=== PATIENT | female | born 1930 | race Two or more races ===

== ENCOUNTER 2021-03-16 08:29 | Inpatient (IN) | payer OTHER, MEDICAID ==
[~2021-03-16] VITALS: Ht 142.2 cm; Wt 62.7 kg
[~2021-03-16 08:29] MED LIST: BABY ASA PO; CLOP75TA28; DILTIAZEM PO; DIOVAN PO; HCTZ; LOVAPOW; POTASSIUM
[2021-03-16 09:15] LABS: Basophils # (auto) 0.1 10 ^3/uL (0-0.2); Eosinophils # (auto) 0.3 10 ^3/uL (0-0.8); Eosinophils % (auto) 4.4 % (0.0-7.0); Hematocrit 39.2 % (36.0-46.0); Hemoglobin 13.6 g/dL (12.2-16.2); Lymphocytes # (auto) 1.8 10 ^3/uL (0.4-5.4); Lymphocytes % (auto) 26.8 % (10.0-50.0); Mean Corpuscular Hemoglobin 31.5 pg (28.0-32.0); Mean Corpuscular Hgb Conc. 34.6 g/dL (32.0-36.0); Mean Corpuscular Volume 91.2 fL (80.0-100.0); Monocytes # (auto) 0.7 10 ^3/uL (0-1.3); Monocytes % (auto) 10.5 % (0.0-12.0); Neutrophils # (auto) 3.9 10 ^3/uL (1.6-8.6); Neutrophils % (auto) 57.3 % (37.0-80.0); Nucleated Red Blood Cells % 0.1 %; Platelet Count (auto) 257 10^3/uL (140-450); Red Cell Distribution Width 12.6 % (11.8-14.3); White Blood Cell 6.8 10^3/uL (4.4-10.8)
[2021-03-16 09:30] LABS: INR 0.98 (0.9-1.15); Partial Thromboplastin Time 24.9 sec (23.0-31.2)
[2021-03-16 09:43] LABS: Albumin 3.4 g/dL (3.4-5.0); Calcium 8.8 mg/dL (8.5-10.1); Potassium 3.9 mmol/L (3.5-5.1)
[2021-03-16 09:48] LABS: Bilirubin, Total 0.4 mg/dL (0.2-1.0); Total Protein 7.5 g/dL (6.4-8.2)
[2021-03-16] MEDS ORDERED: MORPHINE SULF INJ 2 MG/ML SYRINGE 1ML IV PRN ×2 (15:45)
[2021-03-16] MEDS ORDERED: NITROGLYCERIN 0.4 MG SL TAB SL PRN (15:45)
[2021-03-16] MEDS ORDERED: LORazepam 0.5 MG TAB PO PRN (15:45)
[2021-03-16] MEDS ORDERED: DOCUSATE CALCIUM 240 MG CAP PO PRN (15:45)
[2021-03-16] MEDS ORDERED: hydrALAZINE HCL 20 MG/ML VL IV PRN (15:45)
[2021-03-16] MEDS ORDERED: ACETAMINOPHEN 500 MG TAB PO PRN (15:45)
[2021-03-16] MEDS ORDERED: ONDANSETRON HCL 4 MG/2 ML VIAL IV PRN (15:45)
[2021-03-16 19:53] LABS: Cholesterol 156 mg/dL (< 200)
[2021-03-16 19:56] LABS: HDL Cholesterol 49 mg/dL (40-59); LDL Cholesterol 84 mg/dL (< 100); Triglycerides 123 mg/dL (< 150)
[2021-03-16 20:04] VITALS: BP 155/78
[2021-03-16 20:31] LABS: Urine WBC None Seen /hpf (0 - 5)
[2021-03-16 20:55] LABS: Urine Bacteria FEW /hpf (None Seen); Urine Blood Negative /uL (Negative); Urine Specific Gravity 1.006 (1.001-1.035)
[2021-03-16] MEDS: ATORVASTATIN 20 MG TAB PO SCH (21:37)
[2021-03-17 04:55] VITALS: BP 148/53
[2021-03-17] MEDS ORDERED: LOSA-39 PO (07:37)
[2021-03-17] MEDS ORDERED: CLOP75TA70 PO (07:37)
[2021-03-17] MEDS ORDERED: CHOL200031 PO (07:37)
[2021-03-17] MEDS ORDERED: AMLO-489 PO (07:37)
[2021-03-17] MEDS ORDERED: TRIATAB3 PO (07:37)
[2021-03-17] MEDS ORDERED: SIMV10TA84 PO (07:37)
[2021-03-17 07:49] LABS: Basophils # (auto) 0.1 10 ^3/uL (0-0.2); Basophils % (auto) 0.9 % (0.0-2.0); Eosinophils # (auto) 0.3 10 ^3/uL (0-0.8); Eosinophils % (auto) 3.6 % (0.0-7.0); Hematocrit 38.9 % (36.0-46.0); Hemoglobin 13.2 g/dL (12.2-16.2); Lymphocytes # (auto) 1.7 10 ^3/uL (0.4-5.4); Lymphocytes % (auto) 24.9 % (10.0-50.0); Mean Corpuscular Volume 91.4 fL (80.0-100.0); Monocytes # (auto) 0.8 10 ^3/uL (0-1.3); Monocytes % (auto) 10.9 % (0.0-12.0); Neutrophils # (auto) 4.1 10 ^3/uL (1.6-8.6); Neutrophils % (auto) 59.7 % (37.0-80.0); Platelet Count (auto) 258 10^3/uL (140-450); Red Blood Cells 4.25 10^6/uL (4.0-5.20); Red Cell Distribution Width 12.4 % (11.8-14.3); White Blood Cell 6.9 10^3/uL (4.4-10.8)
[2021-03-17 08:00] VITALS: BP 130/70
[2021-03-17 08:01] LABS: Calcium 8.5 mg/dL (8.5-10.1); Potassium 3.9 mmol/L (3.5-5.1)
[2021-03-17 08:05] LABS: BUN/Creatinine Ratio 25.3; Bilirubin, Total 0.6 mg/dL (0.2-1.0); Total Protein 6.7 g/dL (6.4-8.2)
[2021-03-17] MEDS: ASPirin 81 mg TAB PO SCH (09:13)
[2021-03-17] MEDS: PANTOPRAZOLE 40 MG TAB PO SCH (09:13)
[2021-03-17] MEDS ORDERED: ENOXAPARIN SOD 30 MG/0.3 ML SYRINGE SC SCH (10:00)
[2021-03-17 12:00] VITALS: BP 163/73
[2021-03-17] MEDS: CLOPIDOGREL BISULFATE 75 MG TAB PO SCH (13:00)
[2021-03-17 16:00] VITALS: BP 158/73
[2021-03-17] MEDS: LISINOPRIL 5 MG TAB PO SCH (16:21)
[2021-03-17] MEDS: ATORVASTATIN 20 MG TAB PO SCH (21:21)
[2021-03-17 22:00] VITALS: BP 135/69
[2021-03-18 05:00] VITALS: BP 114/54
[2021-03-18 06:55] LABS: Basophils # (auto) 0.1 10 ^3/uL (0-0.2); Basophils % (auto) 0.8 % (0.0-2.0); Eosinophils # (auto) 0.2 10 ^3/uL (0-0.8); Eosinophils % (auto) 2.9 % (0.0-7.0); Hematocrit 38.4 % (36.0-46.0); Hemoglobin 13.2 g/dL (12.2-16.2); Lymphocytes # (auto) 1.4 10 ^3/uL (0.4-5.4); Lymphocytes % (auto) 19.6 % (10.0-50.0); Mean Corpuscular Hemoglobin 31.3 pg (28.0-32.0); Mean Corpuscular Hgb Conc. 34.3 g/dL (32.0-36.0); Mean Corpuscular Volume 91.3 fL (80.0-100.0); Monocytes # (auto) 0.7 10 ^3/uL (0-1.3); Monocytes % (auto) 10.6 % (0.0-12.0); Neutrophils # (auto) 4.6 10 ^3/uL (1.6-8.6); Neutrophils % (auto) 66.1 % (37.0-80.0); Nucleated Red Blood Cells % 0.1 %; Platelet Count (auto) 260 10^3/uL (140-450); Red Blood Cells 4.21 10^6/uL (4.0-5.20); Red Cell Distribution Width 12.5 % (11.8-14.3); White Blood Cell 6.9 10^3/uL (4.4-10.8)
[2021-03-18 07:16] LABS: BUN/Creatinine Ratio 26.2; Calcium 8.3 mg/dL (8.5-10.1); Potassium 3.9 mmol/L (3.5-5.1)
[2021-03-18 08:00] VITALS: BP 141/74
[2021-03-18] MEDS: PANTOPRAZOLE 40 MG TAB PO SCH (10:00)
[2021-03-18] MEDS ORDERED: ENOXAPARIN SOD 40 MG/0.4 ML SYRINGE SC SCH (10:00)
[2021-03-18 11:53] VITALS: BP 127/65
[2021-03-18] MEDS: LISINOPRIL 5 MG TAB PO SCH (12:09)
[2021-03-18] MEDS: CLOPIDOGREL BISULFATE 75 MG TAB PO SCH (12:09)
[2021-03-18] MEDS: ASPirin 81 mg TAB PO SCH (12:09)
[2021-03-18 14:18] VITALS: BP 141/74
== END 2021-03-18 16:10 | disposition home or self-care (01) | DRG 65 ==
LOC: EDBD 08:29 → ER 08:29 → TELE 15:31 → TELE-EAST 19:59
PROVIDERS: ADMIT Family Medicine; ATTEND Family Medicine
DX: I63.9 Cerebral infarction, unspecified (principal); G81.94 Hemiplegia, unspecified affecting left nondominant side; N17.9 Acute kidney failure, unspecified; R73.9 Hyperglycemia, unspecified; C43.30 Malignant melanoma of unspecified part of face; R60.0 Localized edema; Z88.6 Allergy status to analgesic agent; Z88.0 Allergy status to penicillin; E78.5 Hyperlipidemia, unspecified; I25.10 Atherosclerotic heart disease of native coronary artery without angina pectoris; Z79.02 Long term (current) use of antithrombotics/antiplatelets; Z79.82 Long term (current) use of aspirin; Z79.899 Other long term (current) drug therapy; Z90.49 Acquired absence of other specified parts of digestive tract; Z98.42 Cataract extraction status, left eye; K21.9 Gastro-esophageal reflux disease without esophagitis; N18.31 Chronic kidney disease, stage 3a; E66.9 Obesity, unspecified; I12.9 Hypertensive chronic kidney disease with stage 1 through stage 4 chronic kidney disease, or unspecified chronic kidney disease; Z68.29 Body mass index [BMI] 29.0-29.9, adult; I73.9 Peripheral vascular disease, unspecified; Z20.822 Contact with and (suspected) exposure to COVID-19
CPT/HCPCS: 36415; 70450; 70551; 73700; 80048; 80053; 80061; 81001; 83036; 83735; 83880; 84443; 84484; 85025; 85610; 85730; 87426; 93005; 93306; 93886; 93970; G0378